=== PATIENT | male | born 1970 | race Caucasian/White ===

== ENCOUNTER 2020-11-19 09:40 | Emergency (ER) | payer BC ==
[2020-11-19 09:50] VITALS: BP 158/101; PULSE 89; TEMP 98; BMI 26.4
== END 2020-11-19 11:44 | disposition home or self-care (01) ==
LOC: FER 09:40
DX: S80.11XA Contusion of right lower leg, initial encounter (principal); W21.07XA Struck by softball, initial encounter
CPT/HCPCS: 73590-TC-RT-FY; 99281-25